=== PATIENT | male | born 1950 | race Caucasian/White ===

== ENCOUNTER 2019-02-25 13:20 | Day surgery (SDC) | payer MEDICARE, OTHER ==
[~2019-02-25 13:20] MED LIST: CLINDAMYCIN 600MG/50ML PREMIX 600 MG/50 ML BAG IVPB ONE
[2019-02-25] MEDS ORDERED: HYDROCODONE/APAP 5/325MG TABLET PO ONE (13:21)
[2019-02-25] MEDS ORDERED: MIDAZOLAM HCL 2MG/2ML VIAL IV ONE (13:21)
[2019-02-25] MEDS ORDERED: PROPOFOL 10 MG/ML VIAL IV ONE (13:21)
[2019-02-25] MEDS ORDERED: EPHEDRINE SULFATE 50 MG/ML ML IV ONE (13:21)
[2019-02-25] MEDS ORDERED: LIDOCAINE 2% MDV (20MG/ML) 20ML VIAL IV ONE (13:21)
[2019-02-25] MEDS ORDERED: DEXAMETHASONE 4 MG/ML 1ML VIAL IVP ONE (13:21)
[2019-02-25] MEDS ORDERED: ONDANSETRON HCL IV 4 MG/2 ML VIAL IVP ONE (13:21)
[2019-02-25] MEDS ORDERED: SEVOFLURANE 250 ML INH ONE (13:21)
[2019-02-25] MEDS ORDERED: FENTANYL PF 100MCG/2ML VIAL IV ONE (13:21)
[2019-02-25] MEDS ORDERED: BUPIVACAINE 0.25% MPF 30ML VIAL SQ ONE ×2 (16:07)
[2019-02-25] MEDS ORDERED: BACITRACIN 500 UNITS/1 PACKET TOP ONE (16:08)
== END 2019-02-25 17:50 | disposition home or self-care (01) ==
LOC: SUR 13:20
PROVIDERS: ATTEND Urology
DX: N47.1 Phimosis (principal); I10 Essential (primary) hypertension; E78.00 Pure hypercholesterolemia, unspecified; G47.33 Obstructive sleep apnea (adult) (pediatric); I25.10 Atherosclerotic heart disease of native coronary artery without angina pectoris; I25.2 Old myocardial infarction; Z95.1 Presence of aortocoronary bypass graft
CPT/HCPCS: 54161; 00920; J2405; J3010